=== PATIENT | female | born 1980 | race Caucasian/White ===

== ENCOUNTER → 2022-01-12 03:10 | Observation (INO) | END | disposition home or self-care (01) | LOC: 1NENULAB | PROVIDERS: ADMIT Registered Nurse; ATTEND Registered Nurse ==

== ENCOUNTER → 2022-01-20 20:46 | Observation (INO) ==
[2022-01-20 18:24] LABS: Bacteria,Urine Few per hpf (None-Few); Bilirubin,Urine Negative (Negative); Blood,Urine Negative (Negative); Clarity,Urine Clear (Clear); Color,Urine Yellow (Yellow); Glucose,Urine (UA) Normal (Normal); Ketones,Urine Negative (Negative); Leukocyte Esterase,Urine Large (Negative); Mucus,Urine Few per lpf (None-Few); Nitrite,Urine Negative (Negative); PH,Urine 6.5 pH Units (5.0-8.0); Protein,Urine Trace mg/dL (Neg-Trace); RBC,Urine 0-3 per hpf (0-3); Specific Gravity,Urine 1.018 (1.010-1.025); Squamous Epithelial Cell,Urine Moderate per hpf (None-Few); Urobilinogen,Urine Normal (Normal)
[2022-01-20 18:30] LABS: Basophils # 0.1 K/mcL (0.0-0.2); Basophils % 0.4 %; Eosinophils # 0.1 K/mcL (0.0-0.6); Eosinophils % 1.1 %; Hemoglobin 12.4 g/dL (11.5-15.4); Immature Granulocytes % 0.8 % (0-4); Lymphocytes # 1.3 K/mcL (0.6-4.6); Mean Corpuscular HGB Conc 33.5 g/dL (31.6-35.5); Mean Corpuscular Hemoglobin 31.3 pg (28.0-33.3); Mean Corpuscular Volume 93.4 fL (83.0-100.0); Mean Platelet Volume 9.5 fL (9.4-12.4); Monocytes # 0.7 K/mcL (0.0-1.3); Monocytes % 5.8 %; Neutrophils # 9.7 K/mcL (1.6-8.9); Platelet Count 299 K/mcL (140-400); Red Blood Count 3.96 M/mcL (3.82-4.97); Red Cell Distribution Width 14.4 % (11.5-14.5); Segmented Neutrophils % 80.9 %
[2022-01-20 18:30] LABS: Protein/Creatinine Ratio,Urine 0.19 mg/mg (0.00-0.20)
[2022-01-20 18:37] LABS: Alanine Aminotransferase 73 Units/L (7-52); Aspartate Amino Transferase 44 Units/L (13-39); BUN/Creatinine Ratio 12 (6-26); Blood Urea Nitrogen 8 mg/dL (6-20); Lactate Dehydrogenase 152 Units/L (140-271); eGFR For African Americans > 60 (> 60); eGFR For Non-African Americans > 60 (> 60)
[~2022-01-20 20:46] MED LIST: Ringers Solution, Lactated 500 ML IVC ONE
== END | disposition home or self-care (01) ==
LOC: 1NENULAB
PROVIDERS: ADMIT Obstetrics & Gynecology; ATTEND Obstetrics & Gynecology

== ENCOUNTER 2022-02-14 05:18 | Inpatient (IN) ==
[2022-02-14] MEDS ORDERED: Famotidine 20 MG/2 ML VIAL IVP ONE (05:50)
[2022-02-14] MEDS ORDERED: CeFAZolin Syr 3,000MG/30 ML 3,000 MG/30 ML SYRINGE IVPB ONE (05:50)
[2022-02-14] MEDS ORDERED: Ringers Solution, Lactated 1,000 ML IVC ONE (05:50)
[2022-02-14] MEDS ORDERED: Metoclopramide 10 MG/2 ML VIAL IVP ONE (05:50)
[2022-02-14] MEDS ORDERED: Ringers Solution, Lactated 1,000 ML ONE ×2 (05:53→08:09)
[2022-02-14 06:35] LABS: Basophils # 0.1 K/mcL (0.0-0.2); Basophils % 0.4 %; Eosinophils # 0.2 K/mcL (0.0-0.6); Eosinophils % 1.1 %; Hematocrit 38.9 % (35.3-44.9); Hemoglobin 13.2 g/dL (11.5-15.4); Immature Granulocytes % 0.6 % (0-4); Lymphocytes # 2.2 K/mcL (0.6-4.6); Lymphocytes % 15.4 %; Mean Corpuscular HGB Conc 33.9 g/dL (31.6-35.5); Mean Corpuscular Hemoglobin 31.6 pg (28.0-33.3); Mean Corpuscular Volume 93.1 fL (83.0-100.0); Mean Platelet Volume 9.6 fL (9.4-12.4); Monocytes # 1.1 K/mcL (0.0-1.3); Monocytes % 7.8 %; Neutrophils # 10.4 K/mcL (1.6-8.9); Platelet Count 282 K/mcL (140-400); Red Blood Count 4.18 M/mcL (3.82-4.97); Red Cell Distribution Width 15.1 % (11.5-14.5); Segmented Neutrophils % 74.7 %; White Blood Count 13.9 K/mcL (4.3-11.1)
[2022-02-14] MEDS ORDERED: *HR* FentaNYL (PF) 100 MCG/2 ML VIAL ONE (07:24)
[2022-02-14] MEDS ORDERED: Ketorolac 30 MG/ML VIAL ONE (07:24)
[2022-02-14] MEDS ORDERED: EPHEDrine 50 MG/ML VIAL ONE (07:24)
[2022-02-14] MEDS ORDERED: Ondansetron 4 MG/2 ML VIAL ONE (07:24)
[2022-02-14] MEDS ORDERED: *HR* Morphine Sulfate/PF 10 MG/10 ML AMPUL ONE (07:25)
[2022-02-14] MEDS ORDERED: Oxytocin 30 UNIT/503 ML BAG IVC ONE (07:26)
[2022-02-14] MEDS ORDERED: Acetaminophen IV 1,000 MG/100 ML BAG IVPB ONE (07:27)
[2022-02-14 07:39] LABS: Alanine Aminotransferase 60 Units/L (7-52); Aspartate Amino Transferase 46 Units/L (13-39); BUN/Creatinine Ratio 17 (6-26); Blood Urea Nitrogen 12 mg/dL (6-20); Lactate Dehydrogenase 211 Units/L (140-271); Uric Acid 6.9 mg/dL (2.3-7.6); eGFR For African Americans > 60 (> 60); eGFR For Non-African Americans > 60 (> 60)
[2022-02-14 07:39] LABS: Protein/Creatinine Ratio,Urine 0.2 mg/mg (0.00-0.20)
[2022-02-14] MEDS ORDERED: *HR* HYDROmorphone PF 0.5 MG/0.5 ML SYRINGE IVP PRN (08:26)
[2022-02-14] MEDS ORDERED: Promethazine 6.25 MG in Water for inj. (sterile) 20 ML IVPB PRN (08:26)
[2022-02-14] MEDS ORDERED: Ondansetron 4 MG/2 ML VIAL IVP PRN ×2 (08:26→11:57)
[2022-02-14] MEDS: Oxytocin 30 UNIT/503 ML BAG IVC SCH ×2 (08:32→13:16)
[2022-02-14 08:49] LABS: Amphetamine Screen,Urine Negative ng/mL (Cutoff=1000); Barbiturate Screen,Urine Negative ng/mL (Cutoff=200); Benzodiazepines Screen,Urine Negative ng/mL (Cutoff=200); Cannabinoid Screen,Urine Negative ng/mL (Cutoff = 50); Cocaine Screen,Urine Negative ng/mL (Cutoff= 300); Opiate Screen,Urine Negative ng/mL (Cutoff=300); Phencyclidine Screen,Urine Negative ng/mL (Cutoff=25)
[2022-02-14] MEDS ORDERED: miSOPROStoL 100 MCG TABLET RC STA (10:48)
[2022-02-14] MEDS ORDERED: Metoclopramide 10 MG/2 ML VIAL IVP PRN (11:57)
[2022-02-14] MEDS ORDERED: OXYTOCIN/RINGERS LACTATE 10 UNIT/166.6 ML BAG IVC ONE (11:57)
[2022-02-14] MEDS ORDERED: *HR* OxyCODONE Immed Rel 5 MG TABLET PO PRN (11:57)
[2022-02-14] MEDS: Acetaminophen 325 MG TABLET PO SCH ×2 (12:08→21:30)
[2022-02-14] MEDS: Ringers Solution, Lactated 1,000 ML IVC SCH ×2 (13:18→18:58)
[2022-02-14] MEDS: Diphenoxylate/Atropine 1 TAB TABLET PO ONE (14:37)
[2022-02-14] MEDS: Ketorolac 30 MG/ML VIAL IVP ONE ×2 (14:40→14:48)
[2022-02-14] MEDS: Simethicone 80 MG TAB.CHEW PO SCH (14:48)
[2022-02-14 17:25] LABS: Basophils % 0.2 %; Eosinophils % 0.1 %; Hematocrit 35.8 % (35.3-44.9); Immature Granulocytes % 0.9 % (0-4); Lymphocytes # 1.3 K/mcL (0.6-4.6); Mean Corpuscular HGB Conc 33.5 g/dL (31.6-35.5); Mean Corpuscular Hemoglobin 31.7 pg (28.0-33.3); Mean Corpuscular Volume 94.5 fL (83.0-100.0); Mean Platelet Volume 9.7 fL (9.4-12.4); Monocytes # 0.7 K/mcL (0.0-1.3); Monocytes % 3.6 %; Platelet Count 305 K/mcL (140-400); Red Blood Count 3.79 M/mcL (3.82-4.97); Segmented Neutrophils % 88.2 %; White Blood Count 18.2 K/mcL (4.3-11.1)
[2022-02-14] MEDS: *HR* Enoxaparin 80 MG/0.8 ML SYRINGE SQ SCH (21:04)
[2022-02-14] MEDS: Ibuprofen 600 MG TABLET PO SCH (22:14)
[2022-02-15] MEDS ORDERED: Ringers Solution, Lactated 1,000 ML IVC SCH (03:00)
[2022-02-15] MEDS: Acetaminophen 325 MG TABLET PO SCH ×3 (03:15→14:04)
[2022-02-15] MEDS: Ibuprofen 600 MG TABLET PO SCH ×3 (03:15→14:04)
[2022-02-15 03:33] VITALS: O2SAT 96
[2022-02-15 03:51] LABS: Basophils # 0.1 K/mcL (0.0-0.2); Basophils % 0.3 %; Eosinophils # 0.1 K/mcL (0.0-0.6); Eosinophils % 0.5 %; Hematocrit 31.6 % (35.3-44.9); Hemoglobin 10.6 g/dL (11.5-15.4); Immature Granulocytes % 0.7 % (0-4); Lymphocytes # 2.2 K/mcL (0.6-4.6); Lymphocytes % 13.5 %; Mean Corpuscular HGB Conc 33.5 g/dL (31.6-35.5); Mean Corpuscular Hemoglobin 31.5 pg (28.0-33.3); Mean Platelet Volume 9.7 fL (9.4-12.4); Monocytes # 1.1 K/mcL (0.0-1.3); Monocytes % 6.7 %; Neutrophils # 12.7 K/mcL (1.6-8.9); Platelet Count 284 K/mcL (140-400); Red Blood Count 3.36 M/mcL (3.82-4.97); Red Cell Distribution Width 15.2 % (11.5-14.5); Segmented Neutrophils % 78.3 %; White Blood Count 16.2 K/mcL (4.3-11.1)
[2022-02-15 07:59] VITALS: BP 136/81; PULSE 82; TEMP 97.7
[2022-02-15] MEDS: Simethicone 80 MG TAB.CHEW PO SCH (08:39)
[2022-02-15] MEDS: *HR* Enoxaparin 80 MG/0.8 ML SYRINGE SQ SCH (08:39)
[2022-02-15] MEDS ORDERED: Prenatal Vit/FA 1 EACH TABLET PO SCH (09:00)
== END 2022-02-15 14:18 | disposition home or self-care (01) | DRG 785 ==
LOC: 1NENULAB 05:18 → 1NENUOBS 12:16
PROVIDERS: ADMIT Obstetrics & Gynecology; ATTEND Obstetrics & Gynecology